=== PATIENT | male | born 1955 | race Caucasian/White ===

== ENCOUNTER 2024-10-26 21:18 | Emergency (ER) | payer OTHER, SELFPAY ==
[2024-10-26 21:26] VITALS: BP 189/106
[2024-10-26] MEDS: NSS 500 IV (23:39)
[2024-10-26] MEDS: TORADOL 15 MG IV (23:39)
[2024-10-26 23:41] LABS: % Basophils 0.3 % (0-2); % Eosinophils 0.3 % (0-6); % Immature Granulocytes 0.5 % (0-0.5); % Lymphocytes 19.4 % (20.5-51.1); % Monocytes 5.3 % (1.7-9.3); % Neutrophils 74.2 % (42.2-75.2); Absolute Immature Granulocytes 0.1 10^3/uL (0-0.05); Absolute Lymphocytes 1.9 10^3/uL (1.2-3.4); Absolute Monocytes 0.5 10^3/uL (0.1-0.6); Absolute Neutrophils 7.2 10^3/uL (1.4-6.5); Hematocrit 46.2 % (39.0-52.0); Hemoglobin 16.1 g/dL (13.0-18.0); Mean Corp Hgb Conc. 34.8 g/dL (33.0-37.0); Mean Corpuscular Hgb 30.7 pg (27.0-31.0); Mean Corpuscular Volume 88.2 fL (80.0-94.0); Mean Platelet Volume 8.6 fL (7.4-10.4); Nucleated Red Blood Cells % 0 % (-); Platelet Count 241 10^3/uL (130-400); Red Blood Cell Count 5.24 10^6/uL (4.70-6.10); Red Cell Dist. Width 12.8 % (11.5-14.5); White Blood Cell Count 9.8 10^3/uL (4.8-10.8)
[2024-10-27] VITALS: BMI 34.1
[2024-10-27 00:01] LABS: ALT (SGPT) 23 U/L (0-50); AST (SGOT) 26 U/L (17-59); Albumin 4.6 g/dl (3.5-5.0); Alkaline Phosphatase 80 U/L (38-126); Blood Urea Nitrogen 9 mg/dl (9-20); Calcium 9.8 mg/dl (8.4-10.2); Carbon Dioxide 26 mmol/L (22-30); Chloride 99 mmol/L (98-107); Glucose 130 mg/dl (70-99); Potassium 4.2 mmol/L (3.5-5.1); Sodium 135 mmol/L (135-145); Total Bilirubin 1.2 mg/dl (0.2-1.3); Total Protein 7.7 g/dl (6.3-8.2); eGFR > 60.00
--- NOTE | 2024-10-27 00:13 | ED.GENMED ---
History of Present Illness
General
Chief Complaint: Back Pain
Source: patient
Exam Limitations: none
Time Seen by Provider: 10/26/24 23:09
Nursing documentation reviewed up to this point in time: agreed with
History of Present Illness
History of Present Illness:
69-year-old male past medical history of previous skin and bone cancer presenting to the emergency department today with concerns of right-sided low back discomfort that has been mild over the past week or so but worsened after lunch today made
worse with certain positions and movement. Denies any urinary symptoms nausea vomiting or abdominal pain.
Review of Systems
Review of Systems
Allergies reviewed?: Yes
All Other Systems: ROS reviewed and negative except as documented in HPI and ROS
Phy Exam
Physical Exam
Physical Exam:
GENERAL: Alert , in no apparent distress
EYE: pupils equal and reactive
NECK: Supple, no significant adenopathy.
ENT: o/p clr, mmm.
CARDIAC: Regular rate and rhythm .
LUNGS: Clear breath sounds bilaterally, no acute respiratory distress, no wheezes/rales/rhonchi
ABDOMEN: Soft, without focal tenderness, no r/g, no cvat
NEUROLOGICAL: Alert and oriented, no focal neuro deficits
SKIN: Warm and dry, skin intact.
MUSCULOSKELETAL: No edema, well perfused.
PSYCH: Normal and appropriate interaction.
Course
Orders/Labs/Results
Orders:
Orders
10/26/24 23:26
CT Abd/pel Without Iv Or Oral Urgent
Comment:
Reason For Exam: R flank pain
Urinalysis Reflex To Culture Urgent
Date Specimen was Collected: 10/26/24
Time Specimen was Collected: 23:34
0.9% Sodium Chloride 500 ml [Nss] 500 ml IV BOLUS
Ketorolac [Toradol] 15 mg IV NOW STA
10/26/24 23:35
Complete Blood Count/With Diff Urgent
Comprehensive Metabolic Panel Urgent
10/27/24 00:43
Urine Microscopic Reflex Cult Urgent
Urine Culture Urgent
REMI Source: U
Specimen Description:
Date Specimen was Collected: 10/26/24
Time Specimen was Collected: 23:34
Abnormal Lab Results
10/26/24 10/27/24
23:35 00:43
Abs Immat Gran (auto) 0.1 H 10^3/uL
(0-0.05)
Absolute Neuts (auto) 7.2 H 10^3/uL
(1.4-6.5)
Lymphocytes % 19.4 L %
(20.5-51.1)
Creatinine 0.6 L mg/dL
(0.7-1.3)
Glucose 130 H mg/dl
(70-99)
Ur Occult Blood Reflex 1+ A
(Negative)
Leukocyte Esterase Rfl 1+ A
(Negative)
10/26/24 23:35
10/26/24 23:35
Vital Signs
Initial and Last Documented VS:
Initial Vital Signs
Temp Pulse Resp Pulse Ox
98.1 F 102 16 95
10/26/24 21:19 10/26/24 21:19 10/26/24 21:19 10/26/24 21:19
Last Documented Vital Signs
Temp Pulse Resp BP Pulse Ox
98.1 F 102 16 189/106 95
10/26/24 21:19 10/26/24 21:19 10/26/24 21:19 10/26/24 21:26 10/26/24 21:19
MDM/Problems Addressed
MDM/Problems Addressed:
69-year-old male presenting to the emergency department today with concerns of right-sided back discomfort worsening today. Worse with movement. Blood pressure elevated on arrival otherwise vital signs are normal. Labs unremarkable. Labs
unremarkable urinalysis without emergent findings. CT scan obtained due to the patient's comorbidities without emergent findings. No red flag symptoms of back pain normal neurologic evaluation. Likely mechanical pain plan for symptomatic
treatment and close outpatient follow-up. Return precautions given.
*Critical Care Note
Total Time (30-74mins, 75-104mins- exclusive of procedures): Not Applicable
ED Attending Note
-
Portions of this chart may have been created with voice recognition software.� Occasional wrong word or��sound alike� substitutions may have occurred due to the inherent limitations of voice recognition software.
Discharge Plan
Departure
Patient Disposition: Home (Routine Discharge)
Date of Disposition: 10/27/24
Time of Disposition: 01:24
Patient with high blood pressure during this ER visit?: No
Condition: Good
Covid-19: Not Applicable
Discharge Problem:
Low back pain
Instructions: Low Back Pain (DC)
Prescriptions:
New
cyclobenzaprine 10 mg tablet
10 mg PO BID PRN (Reason: back pain) Qty: 7 0RF
Referrals:
Da Elizalde, DO [Family Provider] -
Activity Restrictions/Additional Instructions:
You came to the emergency department today with concerns of low back pain. Here you had a reassuring assessment. This is likely mechanical back pain. Please take the prescribed indications and return for any worsening, new or concerning symptoms.
Otherwise please follow-up closely as an outpatient for reassessment and further treatment.
Interventions
Interventions:
*Risk Screen - Suicide Last Done: 10/26/24 21:19
*General Assessment Last Done: 10/26/24 21:19
*Neglect/Abuse Screening Last Done: 10/26/24 21:19
*ED- Fall Risk Assessment Last Done: 10/27/24 00:00
*ED COVID-19 Vaccine History Last Done: 10/27/24 00:00
ED-Musculoskeletal Assessment Last Done: 10/27/24 00:00
Discharge Date and Time
Print Language: ZIMBABWEAN
[2024-10-27 00:53] LABS: Urine Albumin Negative (Neg - Trace); Urine Bilirubin Negative (Negative); Urine Character Clear (Clear); Urine Color Yellow; Urine Glucose Negative (Negative); Urine Ketone Negative (Negative); Urine Leukocyte 1+ (Negative); Urine Nitrite Negative (Negative); Urine Occult Blood 1+ (Negative); Urine Specific Gravity 1.025 (<1.030); Urine Urobilinogen Negative (Neg - 1+)
--- NOTE | 2024-10-27 01:15 | EDRN ---
Ed, PA in at bedside going over results
[2024-10-27 01:39] LABS: Urine Urothelial Cell 0-2 /LPF (FEW)
[2024-10-27 01:40] LABS: Urine Bacteria Few (Negative); Urine White Cell 0-2 /HPF (0-5)
== END 2024-10-27 01:31 | disposition home or self-care (01) ==
LOC: EMR 21:18
PROVIDERS: Physician Assistant; EMERGENCY PHYSICIAN Emergency Medicine; FAMILY PHYSICIAN Family Medicine
DX: M54.50 Low back pain, unspecified (principal); Z85.828 Personal history of other malignant neoplasm of skin; Z85.830 Personal history of malignant neoplasm of bone
CPT/HCPCS: 99284; 96374; 96361; 74176; 80053; 81003; 81015; 85025; 87086